=== PATIENT | male | born 1960 | race Caucasian/White ===

== ENCOUNTER 2016-10-13 10:32 | Inpatient (IN) | payer OTHER ==
[2016-10-13 11:07] VITALS: BMI 25.3
--- NOTE | 2016-10-13 15:39 | HP ---
COWS - Scale Resting Pulse: 1= [place] 81-100 Sweatin= Chills/Flushing Restless Observation: 3= Extraneous Movement Pupil Size: 2= Moderately Dilated Bone or Joint Aches: 4=Acute Joint/Muscle Pain Runny Nose/ Eye Tearin= Nasal Congestion GI Upset > 30mins: 1= Stomach Cramp (NAUSEA) Tremor Observation: 1= Tremor [place], Not Seen Yawning Observation: 1= 1-2x During Session Anxiety or Irritability: 2=Irritable/Anxious Goose Flesh Skin: 0=Smooth Skin COWS Score: 17 Admission ROS S - HPI Chief Complaint: DETOX [place] FOR HEROIN DEPENDENCE Allergies/Adverse Reactions: Allergies Allergy/AdvReac Type Severity Reaction Status Date / Time penicillin G Allergy Unknown Verified 10/13/16 14:34 History of Present Illness: 56 Y/O MALE WITH A HX OF HEROIN AND CRACK DEPENDENCE SEEKING DETOX [place]. FIRST TIME IN DETOX. Exam Limitations: No Limitations - Ebola screening Have you traveled outside of the country in the last 21 days: No Have you had contact with anyone from an Ebola affected area: No Have you been sick,other than usual withdrawal symptoms: No Do you have a fever: No - Review of Systems Constitutional: Chills, Night Sweats EENT: reports: Blurred Vision (WEARS GLASSES), Tearing, Nose Congestion, Dental Problems (MISSING TEETH/EXTRACTED TEETH.) Respiratory: reports: No Symptoms reported Cardiac: reports: Lightheadedness GI: reports: Constipated, Diarrhea, Nausea, Poor Fluid Intake, Vomiting : reports: Dysuria Musculoskeletal: reports: Back Pain, Joint Pain, Muscle Pain, Other (BOTH SHOULDERS ARE PROSTHETICS.) Integumentary: reports: No Symptoms Reported Neuro: reports: Headache, Unsteady Gait (SOMETIMES) Endocrine: reports: No Symptoms Reported Hematology: reports: Anemia (THALASSEMIA TRAIT HX PER PT.) Psychiatric: reports: Orientated x3, Anxious Other Systems: Reviewed and Negative Patient History - Patient Medical History Hx Anemia: Yes (THALASSEMIA HX PER PT) Hx Asthma: No Hx Chronic Obstructive Pulmonary Disease (COPD): No Hx Cardiac Disorders: No Hx Hypertension: Yes (ON MEDS;NOT TAKEN X 2 WEEKS;182/109) Hx Hypercholesterolemia: Yes (LIPITOR) HX Cerebrovascular Accident: No Hx Seizures: No Hx Diabetes: No Hx Gastrointestinal Disorders: No Hx Genitourinary Disorders: Yes (UTI HX) Hx Sexually Transmitted Disorders: Yes (HX GONORRHEA IN 1979) Hx Renal Disease (ESRD): Yes ("SLIGHT RENAL INSUFFICIENCY") Hx Thyroid Disease: No Hx Human Immunodeficiency Virus (HIV): No (NEGATIVE HX) Hx Hepatitis C: No Hx Depression: Yes (ON MED) Hx Suicide Attempt: No (DENIES) Hx Bipolar Disorder: Yes (ON MED) Hx Schizophrenia: No - Patient Surgical History Past Surgical History: Yes Hx Neurologic Surgery: No Hx Cataract Extraction: No Hx Cardiac Surgery: No Hx Lung Surgery: No Hx Breast Surgery: No Hx Breast Biopsy: No Hx Abdominal Surgery: No Hx Appendectomy: No Hx Cholecystectomy: No Hx Genitourinary Surgery: No Hx Orthopedic Surgery: Yes (multiple bilateral shoulder sx) Anesthesia Reaction: No - PPD History Previous Implant?: Yes Documented Results: Negative w/o proof Implanted On Prior R Admission?: No PPD to be Administered?: Yes - Reproductive History Patient is a Female of Child Bearing Age (11 -55 yrs old): No (MALE) - Smoking Cessation Smoking history: Current every day smoker Have you smoked in the past 12 months: Yes Aproximately how many cigarettes per day: 20 Hx Chewing Tobacco Use: No Initiated information on smoking cessation: Yes 'Breaking Loose' booklet given: 10/13/16 - Substance & Tx. History Hx Alcohol Use: Yes (SPORADICALLY) Hx Substance Use: Yes (HEROIN/CRACK) Substance Use Type: Alcohol, Cocaine, Heroin Hx Substance Use Treatment: No (FIRST TIME IN [place]) - Substances Abused Heroin Route: Inhalation Frequency: Daily Amount used: 5 bags Age of first use: 55 Date of Last Use: 10/13/16 Crack Route: Smoking Frequency: Daily Amount used: $200-300 Age of first use: 55 Date of Last Use: 10/13/16 Family Disease History - Family Disease History Family Disease History: Diabetes: Grandparent (GF-), Other: Father ( HEROIN ADDICTION-) Admission Physical Exam BHS - Vital Signs Vital Signs: Vital Signs - 24 hr 10/13/16 11:04 Temperature 96.2 F L Pulse Rate 93 H Respiratory 20 Rate Blood Pressure 182/109 - Physical General Appearance: Yes: Moderate Distress, Irritable, Anxious HEENTM: Yes: EOMI, Normocephalic, ELISA, Pharynx Normal, Nasal Congestion, Rhinorrhea Respiratory: Yes: Chest Non-Tender, Lungs Clear, Normal Breath Sounds, No Respiratory Distress Neck: Yes: Supple, Trachea in good position Breast: Yes: Breast Exam Deferred Cardiology: Yes: Regular Rhythm, Regular Rate, S1, S2 Abdominal: Yes: Normal Bowel Sounds, Non Tender, Flat, Soft Genitourinary: Yes: Other (N/C) Musculoskeletal: Yes: full range of Motion, Gait Steady Extremities: Yes: Normal Range of Motion, Non-Tender Neurological: Yes: supervisor modern languages II-XII NML intact, Fully Oriented, Alert Integumentary: Yes: Dry, Warm Lymphatic: Yes: Within Normal Limits - Diagnostic (1) Opioid dependence with withdrawal Current Visit: Yes Status: Acute (2) Cocaine dependence, uncomplicated Current Visit: Yes Status: Acute (3) Hypertension Current Visit: Yes Status: Chronic Qualifiers: Hypertension type: essential hypertension Qualified Code(s): I10 - Essential (primary) hypertension (4) Hypercholesterolemia Current Visit: Yes Status: Chronic (5) History of depression Current Visit: Yes Status: Chronic Cleared for Admission [facility] - Detox or Rehab [facility] Level of Care: Medically Managed Detox Regimen/Protocol: Methadone [facility] Breath Alcohol Content Breath Alcohol Content: 0 Urine Drug Screen - Results Drug Screen Negative: No Urine Drug Screen Results: EVANGELINA-Cocaine, OPI-Opiates
[2016-10-13] MEDS ORDERED: MAG HYDROX/AL HYDROX/SIMETH 30 ML UNIT-DOSE CUP PO PRN (16:10)
[2016-10-13] MEDS ORDERED: MAGNESIUM HYDROX 2400MG/30ML ORAL SUSPENSION 30 ML CUP PO PRN (16:10)
[2016-10-13] MEDS ORDERED: NICOTINE POLACRILEX 4 MG GUM BC PRN (16:10)
[2016-10-13] MEDS ORDERED: LOPERAMIDE HCL 2 MG CAPSULE PO PRN (16:10)
[2016-10-13] MEDS ORDERED: MENTHOL/PHENOL 1 EACH UD MM PRN (16:10)
[2016-10-13] MEDS ORDERED: P-EPHED 60MG/TRIPROLIDI 2.5MG TABLET PO PRN (16:10)
[2016-10-13] MEDS ORDERED: IBUPROFEN 400 MG TABLET (FP) PO PRN (16:10)
[2016-10-13] MEDS ORDERED: ACETAMINOPHEN 325 MG TABLET (FP) PO PRN (16:10)
[2016-10-13] MEDS ORDERED: MAGNESIUM CITRATE 300 ML BOTTLE PO PRN (16:10)
[2016-10-13] MEDS ORDERED: guaiFENesin/D-METHORPHAN HB 10 ML UNIT-DOSE CUPS PO PRN (16:10)
[2016-10-13] MEDS ORDERED: PATIENT'S OWN MEDICATION (NON-FORMULARY) (Losartan/Hydrochlorothiazide [Hyzaar 100-12.5 Ta PO SCH (16:30)
[2016-10-13] MEDS ORDERED: METHADONE HCL 10 MG TABLET (FOR DETOX USE ONLY) PO ONE ×2 (16:45→23:00)
[2016-10-13] MEDS: diazePAM 5 MG TABLET PO PRN ×2 (17:11→22:17)
[2016-10-13] MEDS: NICOTINE 21 MG/24 HOURS TOPICAL PATCH TD SCH (17:12)
[2016-10-13] MEDS: ALLOPURINOL 100 MG TABLET (FP) PO SCH (17:16)
[2016-10-13] MEDS: THIAMINE HCL 100 MG TABLET (FP) PO SCH (22:16)
[2016-10-13] MEDS: diphenhydrAMINE HCL 50 MG CAPSULE PO PRN (22:16)
[2016-10-13] MEDS: ATORVASTATIN CA 10 MG TABLET (FP) PO SCH (22:17)
[2016-10-13 23:27] LABS: URINE APPEARANCE CLEAR; URINE BILIRUBIN NEGATIVE (NEGATIVE); URINE BLOOD NEGATIVE (NEGATIVE); URINE COLOR LTYELLOW; URINE GLUCOSE (UA) NEGATIVE (NEGATIVE); URINE KETONE NEGATIVE (NEGATIVE); URINE LEUK ESTERASE NEGATIVE (NEGATIVE); URINE NITRITE NEGATIVE (NEGATIVE); URINE PROTEIN NEGATIVE (NEGATIVE); URINE UROBILINOGEN NEGATIVE E.U./dl (0.2-1.0)
[2016-10-14] MEDS: diazePAM 5 MG TABLET PO PRN (06:08)
[2016-10-14] MEDS ORDERED: METHADONE HCL 10 MG TABLET (FOR DETOX USE ONLY) PO ONE (10:00)
[2016-10-14 10:26] LABS: MCH 20.4 pg (25.7-33.7); MCHC 31.3 g/dl (32.0-35.9); MEAN CELL VOLUME 65.2 fl (80-96); MEAN PLT VOLUME 9.4 fl (7.5-11.1); PLATELET COUNT 269 K/MM3 (134-434); RDW 17.7 % (11.9-15.9); WHITE BLOOD COUNT 6.2 K/mm3 (4.0-10.0)
[2016-10-14] MEDS: PRENATAL VITAMINS W/ FOLIC ACID TABLET (FP) PO SCH (10:40)
[2016-10-14] MEDS: HYDROCHLOROTHIAZIDE 12.5 MG CAPSULE (FP) PO SCH (10:41)
[2016-10-14] MEDS: LOSARTAN POTASSIUM 50 MG TABLET (FP) PO SCH (10:41)
[2016-10-14] MEDS: NICOTINE 21 MG/24 HOURS TOPICAL PATCH TD SCH (10:41)
[2016-10-14] MEDS: ALLOPURINOL 100 MG TABLET (FP) PO SCH (10:41)
[2016-10-14 10:59] LABS: ALBUMIN 3.9 g/dl (3.4-5.0); BILIRUBIN,TOTAL 0.5 mg/dL (0.2-1.0); CALCIUM 9.5 mg/dL (8.5-10.1); CREATININE 2.3 mg/dL (0.7-1.3); TOT PROT 7.1 g/dl (6.4-8.2)
[2016-10-14 11:11] LABS: PLATELET ESTIMATE ADEQUATE (NORMAL); POLYCHROMASIA 1+
[2016-10-14 11:12] LABS: ANISOCYTOSIS 1+; HYPOCHROMIA 2+; MICROCYTOSIS 1+; OVALOCYTES 1+; POIKILOCYTOSIS 1+; TARGET CELLS 2+
[2016-10-14] MEDS ORDERED: INFLUENZA VACCINE 45 MCG/0.5 ML (MDV 16-17) IM ONE (12:00)
--- NOTE | 2016-10-14 12:30 | EKG ---
Test Reason : Blood Pressure : / mmHG Vent. Rate : 063 BPM Atrial Rate : 063 BPM P-R Int : 166 ms QRS Dur : 090 ms QT Int : 458 ms P-R-T Axes : 061 -14 -25 degrees QTc Int : 468 ms POOR DATA QUALITY, INTERPRETATION MAY BE ADVERSELY AFFECTED NORMAL SINUS RHYTHM Confirmed by JOSSELYN EDUARDO, RAMONA ([id number]) on 10/14/2016 12:29:38 PM Referred By: Confirmed By:RAMONA ARCOS MD
[2016-10-14 13:46] LABS: HIV 1 & 2 AB NEGATIVE; HIV 1 AGp24 NEGATIVE
--- NOTE | 2016-10-14 15:25 | PN ---
S COWS - Scale Resting Pulse: 1= [place] 81-100 Sweatin= No chills or Flushing Restless Observation: 1= Difficult to Sit Still Pupil Size: 1= Pupils >than Normal Bone or Joint Aches: 2= Severe Diffuse Aches Runny Nose/ Eye Tearin= Nasal Congestion GI Upset > 30mins: 2= Nausea/Diarrhea Tremor Observation of Outstretched Hands: 2= Slight Tremor Visible Yawning Observation: 1= 1-2x During Session Anxiety or Irritability: 2=Irritable/Anxious Goose Flesh Skin: 0=Smooth Skin COWS Score: 13 [facility] Progress Note (SOAP) Subjective: Nausea, Stomach Cramping, Body Aches, Fatigue, Tremors. Objective: PT. A & O X 3. 10/14/16 15:22 Vital Signs Temperature 96.6 F L 10/14/16 10:56 Pulse Rate 75 10/14/16 10:56 Respiratory Rate 18 10/14/16 10:56 Blood Pressure 129/80 10/14/16 10:56 O2 Sat by Pulse Oximetry (%) Laboratory Last Values WBC 6.2 K/mm3 (4.0-10.0) 10/14/16 06:00 RBC 5.77 M/mm3 (4.00-5.60) H 10/14/16 06:00 Hgb 11.8 GM/dL (11.7-16.9) 10/14/16 06:00 Hct 37.6 % (35.4-49) 10/14/16 06:00 MCV 65.2 fl (80-96) L 10/14/16 06:00 MCHC 31.3 g/dl (32.0-35.9) L 10/14/16 06:00 RDW 17.7 % (11.9-15.9) H 10/14/16 06:00 Plt Count 269 K/MM3 (134-434) 10/14/16 06:00 MPV 9.4 fl (7.5-11.1) 10/14/16 06:00 Platelet Estimate Adequate (NORMAL) 10/14/16 06:00 Platelet Comment No clumping noted 10/14/16 06:00 Polychromasia 1+ 10/14/16 06:00 Hypochromic-Microcytic 2+ 10/14/16 06:00 Poikilocytosis 1+ 10/14/16 06:00 Anisocytosis 1+ 10/14/16 06:00 Microcytosis 1+ 10/14/16 06:00 Target Cells 2+ 10/14/16 06:00 Ovalocytes 1+ 10/14/16 06:00 Sodium 142 mmol/L (136-145) 10/14/16 06:00 Potassium 4.2 mmol/L (3.5-5.1) 10/14/16 06:00 Chloride 103 mmol/L (98-107) 10/14/16 06:00 Carbon Dioxide 30 mmol/L (21-32) 10/14/16 06:00 Anion Gap 9 (8-16) 10/14/16 06:00 BUN 21 mg/dL (7-18) H 10/14/16 06:00 Creatinine 2.3 mg/dL (0.7-1.3) H 10/14/16 06:00 Creat Clearance w eGFR 29.67 (>60) 10/14/16 06:00 Random Glucose 85 mg/dL (74-106) 10/14/16 06:00 Calcium 9.5 mg/dL (8.5-10.1) 10/14/16 06:00 Total Bilirubin 0.5 mg/dL (0.2-1.0) 10/14/16 06:00 AST 20 U/L (15-37) 10/14/16 06:00 ALT 21 U/L (12-78) 10/14/16 06:00 Alkaline Phosphatase 75 U/L (45-117) 10/14/16 06:00 Total Protein 7.1 g/dl (6.4-8.2) 10/14/16 06:00 Albumin 3.9 g/dl (3.4-5.0) 10/14/16 06:00 Urine Color Ltyellow 10/13/16 19:34 Urine Appearance Clear 10/13/16 19:34 Urine pH 7.0 (5.0-8.0) 10/13/16 19:34 Ur Specific [place] 1.009 (1.001-1.035) 10/13/16 19:34 Urine Protein Negative (NEGATIVE) 10/13/16 19:34 Urine Glucose (UA) Negative (NEGATIVE) 10/13/16 19:34 Urine Ketones Negative (NEGATIVE) 10/13/16 19:34 Urine Blood Negative (NEGATIVE) 10/13/16 19:34 Urine Nitrite Negative (NEGATIVE) 10/13/16 19:34 Urine Bilirubin Negative (NEGATIVE) 10/13/16 19:34 Urine Urobilinogen Negative E.U./dl (0.2-1.0) 10/13/16 19:34 Ur Leukocyte Esterase Negative (NEGATIVE) 10/13/16 19:34 HIV 1&2 Antibody Screen Negative 10/14/16 08:00 HIV P24 Antigen Negative 10/14/16 08:00 LABS NOTED. Assessment: 10/14/16 15:24 WITHDRAWAL SYMPTOMS. Plan: CONTINUE DETOX. D/C MAGNESIUM-CONTAINING MEDS. ADVISED PATIENT TO FOLLOW-UP WITH [facility] / REHAB MEDICAL PROVIDER AFTER DISCHARGER FROM DETOX FOR GENERAL MEDICAL ASSESSMENT AND FOR ABNORMAL ADMISSION LAB VALUES.
--- NOTE | 2016-10-14 16:22 | CONSULT ---
[facility] Psychiatric Consult - Data Date of interview: 10/14/16 Admission source: [facility] Identifying data: First admission to [facility] for this 56 y/o male seeking detoxification for heroin and cocaine dependence.Patient is domiciled ( living with ),a father of two and employed. Substance Abuse History: - Smoking Cessation. Smoking history: Current every day smoker. Have you smoked in the past 12 months: Yes. Aproximately how many cigarettes per day: 20. Hx Chewing Tobacco Use: No. Initiated information on smoking cessation: Yes. 'Breaking Loose' booklet given: 10/13/16. - Substance & Tx. History. Hx Alcohol Use: Yes (SPORADICALLY). Hx Substance Use: Yes ( HEROIN/CRACK). Substance Use Type: Alcohol, Cocaine, Heroin. Hx Substance Use Treatment: No (FIRST TIME IN [place]). - Substances Abused. Heroin. Route: Inhalation. Frequency: Daily. Amount used: 5 bags. Age of first use: 55. Date of Last Use: 10/13/16. Crack. Route: Smoking. Frequency: Daily. Amount used: $200-300. Age of first use: 55. Date of Last Use: 10/13/16. Confirmed by patient. Medical History: Hypertension,gout,dyslipidemia and a history of orthosurgery ( both shoulders). Psychiatric History: Patient admits to a remote history of a psychiatric admission to [facility] [place] (years ago).Diagnosed with Bipolar Disorder and prescribed lithium 300 mg/day + lamotrigine 100 mg po bid + depakote 100 mg po bid.Not taken for more than two weeks,accoerding to patient.Mr Croft sees a private psychiatrist in [facility].No reported history of suicide attempts. Physical/Sexual Abuse/Trauma History: Patient denies. Additional Comment: Urine Drug Screen Results: EVANGELINA-Cocaine, OPI-Opiates. Noted. Mental Status Exam - Mental Status Exam Alert and Oriented to: Time, Place, Person Cognitive Function: Good Patient Appearance: Well Groomed (short stature) Mood: Hopeful, Euthymic Affect: Appropriate, Normal Range Patient Behavior: Fatigued, Appropriate, Cooperative Speech Pattern: Clear, Appropriate Voice Loudness: Normal Thought Process: Goal Oriented Thought Disorder: Not Present Hallucinations: Denies Suicidal Ideation: Denies Homicidal Ideation: Denies Insight/Judgement: Poor Sleep: Fair Appetite: Good Muscle strength/Tone: Normal Gait/Station: Normal Psychiatric Findings - Problem List ([place] 1, 2,3) (1) Cocaine dependence, uncomplicated Current Visit: Yes Status: Acute (2) Opioid dependence with withdrawal Current Visit: Yes Status: Acute (3) Nicotine dependence Current Visit: Yes Status: Acute (4) Substance induced mood disorder Current Visit: Yes Status: Acute (5) Bipolar disorder Current Visit: Yes Status: Acute Comment: History. (6) Hypercholesterolemia Current Visit: Yes Status: Chronic (7) Hypertension Current Visit: Yes Status: Chronic Qualifiers: Hypertension type: essential hypertension Qualified Code(s): I10 - Essential (primary) hypertension - Initial Treatment Plan Initial Treatment Plan: Psychoeducation.Detoxification in progress.Labs reviewed.Noted compromised renal function (BUN = 21 - creatinine = 2.3 - GFR = 29.6).[place] (abnormal renal function) and lamictal (chronic non-compliance) are held.Medication : depakote 500 mg po bid.Side effects/benefits discussed with patient.Will titrate as clinically indicated.Patient is informed of this stategy.Agrees.Medications verified by checking pharmacy claims (filled scripts from provider Fredi Fierro on 09/01/16 @ [facility] # [id number]).Patient confirms that he has ample supply of medications at home.No need for scripts at discharge.Observation.
[2016-10-14] MEDS: DIVALPROEX SODIUM 500 MG TABLET E.C. PO SCH (22:26)
[2016-10-14] MEDS: ATORVASTATIN CA 10 MG TABLET (FP) PO SCH (22:26)
[2016-10-14] MEDS: THIAMINE HCL 100 MG TABLET (FP) PO SCH (22:26)
[2016-10-14] MEDS: diphenhydrAMINE HCL 50 MG CAPSULE PO PRN (22:27)
[2016-10-15] MEDS: diazePAM 5 MG TABLET PO PRN (06:16)
[2016-10-15] MEDS ORDERED: METHADONE HCL 5 MG TABLET (FOR DETOX USE ONLY) PO ONE (10:00)
[2016-10-15] MEDS: NICOTINE 21 MG/24 HOURS TOPICAL PATCH TD SCH (10:14)
[2016-10-15] MEDS: LOSARTAN POTASSIUM 50 MG TABLET (FP) PO SCH (10:14)
[2016-10-15] MEDS: DIVALPROEX SODIUM 500 MG TABLET E.C. PO SCH ×2 (10:14→22:07)
[2016-10-15] MEDS: HYDROCHLOROTHIAZIDE 12.5 MG CAPSULE (FP) PO SCH (10:14)
[2016-10-15] MEDS: ALLOPURINOL 100 MG TABLET (FP) PO SCH (10:14)
[2016-10-15] MEDS: PRENATAL VITAMINS W/ FOLIC ACID TABLET (FP) PO SCH (10:15)
--- NOTE | 2016-10-15 16:11 | PN ---
S COWS - Scale Resting Pulse: 1= [place] 81-100 Sweatin=Flushed/Facial Moisture Restless Observation: 3= Extraneous Movement Pupil Size: 0= Normal to Room Light Bone or Joint Aches: 2= Severe Diffuse Aches Runny Nose/ Eye Tearin= Runny Nose/Eyes GI Upset > 30mins: 0= None Tremor Observation of Outstretched Hands: 2= Slight Tremor Visible Yawning Observation: 0= None Anxiety or Irritability: 2=Irritable/Anxious Goose Flesh Skin: 0=Smooth Skin COWS Score: 14 S Progress Note (SOAP) Subjective: Nausea, tremor, sweating, interrupted sleep Objective: 10/15/16 16:08 Last Vital Signs Temp Pulse Resp BP Pulse Ox 98.3 F 91 H 19 132/89 10/15/16 14:00 10/15/16 14:00 10/15/16 14:00 10/15/16 14:00 Laboratory Tests 10/13/16 10/14/16 10/14/16 19:34 06:00 06:00 WBC 6.2 RBC 5.77 H Hgb 11.8 Hct 37.6 MCV 65.2 L MCHC 31.3 L RDW 17.7 H Plt Count 269 MPV 9.4 Platelet Estimate Adequate Platelet Comment No clumping noted Polychromasia 1+ Hypochromic-Microcytic 2+ Poikilocytosis 1+ Anisocytosis 1+ Microcytosis 1+ Target Cells 2+ Ovalocytes 1+ Sodium 142 Potassium 4.2 Chloride 103 Carbon Dioxide 30 Anion Gap 9 BUN 21 H Creatinine 2.3 H Creat Clearance w eGFR 29.67 Random Glucose 85 Calcium 9.5 Total Bilirubin 0.5 AST 20 ALT 21 Alkaline Phosphatase 75 Total Protein 7.1 Albumin 3.9 Urine Color Ltyellow Urine Appearance Clear Urine pH 7.0 Ur Specific [place] 1.009 Urine Protein Negative Urine Glucose (UA) Negative Urine Ketones Negative Urine Blood Negative Urine Nitrite Negative Urine Bilirubin Negative Urine Urobilinogen Negative Ur Leukocyte Esterase Negative Valproic Acid RPR Titer HIV 1&2 Antibody Screen HIV P24 Antigen 10/14/16 10/14/16 10/15/16 06:00 08:00 07:45 WBC RBC Hgb Hct MCV MCHC RDW Plt Count MPV Platelet Estimate Platelet Comment Polychromasia Hypochromic-Microcytic Poikilocytosis Anisocytosis Microcytosis Target Cells Ovalocytes Sodium Potassium Chloride Carbon Dioxide Anion Gap BUN Creatinine Creat Clearance w eGFR Random Glucose Calcium Total Bilirubin AST ALT Alkaline Phosphatase Total Protein Albumin Urine Color Urine Appearance Urine pH Ur Specific [place] Urine Protein Urine Glucose (UA) Urine Ketones Urine Blood Urine Nitrite Urine Bilirubin Urine Urobilinogen Ur Leukocyte Esterase Valproic Acid 41.1 L RPR Titer Nonreactive HIV 1&2 Antibody Screen Negative HIV P24 Antigen Negative Labs noted: BUN 21, serum creatinine 2.3 Assessment: 10/15/16 16:09 Withdrawal symptoms Noted with FABIAN Plan: Continue detox FABIAN: encourage to drink lots of water (provide water pitcher), repeat BMP
[2016-10-15] MEDS: THIAMINE HCL 100 MG TABLET (FP) PO SCH (22:07)
[2016-10-15] MEDS: ATORVASTATIN CA 10 MG TABLET (FP) PO SCH (22:07)
[2016-10-15] MEDS: diphenhydrAMINE HCL 50 MG CAPSULE PO PRN (22:07)
[2016-10-16] MEDS: diazePAM 5 MG TABLET PO PRN ×2 (06:14→10:23)
[2016-10-16 09:51] LABS: CALCIUM 9.3 mg/dL (8.5-10.1)
[2016-10-16] MEDS ORDERED: METHADONE HCL 5 MG TABLET (FOR DETOX USE ONLY) PO ONE (10:00)
[2016-10-16] MEDS: DIVALPROEX SODIUM 500 MG TABLET E.C. PO SCH (10:22)
[2016-10-16] MEDS: PRENATAL VITAMINS W/ FOLIC ACID TABLET (FP) PO SCH (10:22)
[2016-10-16] MEDS: ALLOPURINOL 100 MG TABLET (FP) PO SCH (10:22)
[2016-10-16] MEDS: HYDROCHLOROTHIAZIDE 12.5 MG CAPSULE (FP) PO SCH (10:22)
[2016-10-16] MEDS: LOSARTAN POTASSIUM 50 MG TABLET (FP) PO SCH (10:23)
[2016-10-16] MEDS: NICOTINE 21 MG/24 HOURS TOPICAL PATCH TD SCH (10:23)
[2016-10-16 13:02] VITALS: BP 128/91; PULSE 76; TEMP 98
--- NOTE | 2016-10-16 13:24 | PN ---
S Progress Note (SOAP) Subjective: Sweating,interrupted sleep,restless. Objective: 10/16/16 13:23 Vital Signs - 8 hr 10/16/16 10/16/16 10/16/16 06:32 09:52 13:01 Temperature 97.0 F L 95.4 F L 98 F Pulse Rate 93 H 78 76 Respiratory 18 20 20 Rate Blood Pressure 127/83 135/85 128/91 Laboratory Last Values WBC 6.2 K/mm3 (4.0-10.0) 10/14/16 06:00 RBC 5.77 M/mm3 (4.00-5.60) H 10/14/16 06:00 Hgb 11.8 GM/dL (11.7-16.9) 10/14/16 06:00 Hct 37.6 % (35.4-49) 10/14/16 06:00 MCV 65.2 fl (80-96) L 10/14/16 06:00 MCHC 31.3 g/dl (32.0-35.9) L 10/14/16 06:00 RDW 17.7 % (11.9-15.9) H 10/14/16 06:00 Plt Count 269 K/MM3 (134-434) 10/14/16 06:00 MPV 9.4 fl (7.5-11.1) 10/14/16 06:00 Platelet Estimate Adequate (NORMAL) 10/14/16 06:00 Platelet Comment No clumping noted 10/14/16 06:00 Polychromasia 1+ 10/14/16 06:00 Hypochromic-Microcytic 2+ 10/14/16 06:00 Poikilocytosis 1+ 10/14/16 06:00 Anisocytosis 1+ 10/14/16 06:00 Microcytosis 1+ 10/14/16 06:00 Target Cells 2+ 10/14/16 06:00 Ovalocytes 1+ 10/14/16 06:00 Sodium 144 mmol/L (136-145) 10/16/16 07:00 Potassium 3.9 mmol/L (3.5-5.1) 10/16/16 07:00 Chloride 107 mmol/L (98-107) 10/16/16 07:00 Carbon Dioxide 29 mmol/L (21-32) 10/16/16 07:00 Anion Gap 8 (8-16) 10/16/16 07:00 BUN 21 mg/dL (7-18) H 10/16/16 07:00 Creatinine 2.0 mg/dL (0.7-1.3) H 10/16/16 07:00 Creat Clearance w eGFR 29.67 (>60) 10/14/16 06:00 Random Glucose 84 mg/dL (74-106) 10/16/16 07:00 Calcium 9.3 mg/dL (8.5-10.1) 10/16/16 07:00 Total Bilirubin 0.5 mg/dL (0.2-1.0) 10/14/16 06:00 AST 20 U/L (15-37) 10/14/16 06:00 ALT 21 U/L (12-78) 10/14/16 06:00 Alkaline Phosphatase 75 U/L (45-117) 10/14/16 06:00 Total Protein 7.1 g/dl (6.4-8.2) 10/14/16 06:00 Albumin 3.9 g/dl (3.4-5.0) 10/14/16 06:00 Urine Color Ltyellow 10/13/16 19:34 Urine Appearance Clear 10/13/16 19:34 Urine pH 7.0 (5.0-8.0) 10/13/16 19:34 Ur Specific [place] 1.009 (1.001-1.035) 10/13/16 19:34 Urine Protein Negative (NEGATIVE) 10/13/16 19:34 Urine Glucose (UA) Negative (NEGATIVE) 10/13/16 19:34 Urine Ketones Negative (NEGATIVE) 10/13/16 19:34 Urine Blood Negative (NEGATIVE) 10/13/16 19:34 Urine Nitrite Negative (NEGATIVE) 10/13/16 19:34 Urine Bilirubin Negative (NEGATIVE) 10/13/16 19:34 Urine Urobilinogen Negative E.U./dl (0.2-1.0) 10/13/16 19:34 Ur Leukocyte Esterase Negative (NEGATIVE) 10/13/16 19:34 Valproic Acid 41.1 ug/ml (50-100) L 10/15/16 07:45 RPR Titer Nonreactive (NONREACTIVE) 10/14/16 06:00 HIV 1&2 Antibody Screen Negative 10/14/16 08:00 HIV P24 Antigen Negative 10/14/16 08:00 labs noted Assessment: 10/16/16 13:23 Withdrawal sx. Plan: Continue detox
--- NOTE | 2016-10-17 09:02 | DS ---
[facility] Detox Discharge Summary Admission Date: 10/13/16 Discharge Date: 10/16/16 - History Present History: Cocaine Dependence, Opioid Dependence Pertinent Past History: HTN Hypercholesterolemia - Physical Exam Results Vital Signs: Vital Signs Temperature 98 F 10/16/16 13:01 Pulse Rate 76 10/16/16 13:01 Respiratory Rate 20 10/16/16 13:01 Blood Pressure 128/91 10/16/16 13:01 O2 Sat by Pulse Oximetry (%) Pertinent Admission Physical Exam Findings: Withdrawal sx. Laboratory Last Values WBC 6.2 K/mm3 (4.0-10.0) 10/14/16 06:00 RBC 5.77 M/mm3 (4.00-5.60) H 10/14/16 06:00 Hgb 11.8 GM/dL (11.7-16.9) 10/14/16 06:00 Hct 37.6 % (35.4-49) 10/14/16 06:00 MCV 65.2 fl (80-96) L 10/14/16 06:00 MCHC 31.3 g/dl (32.0-35.9) L 10/14/16 06:00 RDW 17.7 % (11.9-15.9) H 10/14/16 06:00 Plt Count 269 K/MM3 (134-434) 10/14/16 06:00 MPV 9.4 fl (7.5-11.1) 10/14/16 06:00 Platelet Estimate Adequate (NORMAL) 10/14/16 06:00 Platelet Comment No clumping noted 10/14/16 06:00 Polychromasia 1+ 10/14/16 06:00 Hypochromic-Microcytic 2+ 10/14/16 06:00 Poikilocytosis 1+ 10/14/16 06:00 Anisocytosis 1+ 10/14/16 06:00 Microcytosis 1+ 10/14/16 06:00 Target Cells 2+ 10/14/16 06:00 Ovalocytes 1+ 10/14/16 06:00 Sodium 144 mmol/L (136-145) 10/16/16 07:00 Potassium 3.9 mmol/L (3.5-5.1) 10/16/16 07:00 Chloride 107 mmol/L (98-107) 10/16/16 07:00 Carbon Dioxide 29 mmol/L (21-32) 10/16/16 07:00 Anion Gap 8 (8-16) 10/16/16 07:00 BUN 21 mg/dL (7-18) H 10/16/16 07:00 Creatinine 2.0 mg/dL (0.7-1.3) H 10/16/16 07:00 Creat Clearance w eGFR 29.67 (>60) 10/14/16 06:00 Random Glucose 84 mg/dL (74-106) 10/16/16 07:00 Calcium 9.3 mg/dL (8.5-10.1) 10/16/16 07:00 Total Bilirubin 0.5 mg/dL (0.2-1.0) 10/14/16 06:00 AST 20 U/L (15-37) 10/14/16 06:00 ALT 21 U/L (12-78) 10/14/16 06:00 Alkaline Phosphatase 75 U/L (45-117) 10/14/16 06:00 Total Protein 7.1 g/dl (6.4-8.2) 10/14/16 06:00 Albumin 3.9 g/dl (3.4-5.0) 10/14/16 06:00 Urine Color Ltyellow 10/13/16 19:34 Urine Appearance Clear 10/13/16 19:34 Urine pH 7.0 (5.0-8.0) 10/13/16 19:34 Ur Specific [place] 1.009 (1.001-1.035) 10/13/16 19:34 Urine Protein Negative (NEGATIVE) 10/13/16 19:34 Urine Glucose (UA) Negative (NEGATIVE) 10/13/16 19:34 Urine Ketones Negative (NEGATIVE) 10/13/16 19:34 Urine Blood Negative (NEGATIVE) 10/13/16 19:34 Urine Nitrite Negative (NEGATIVE) 10/13/16 19:34 Urine Bilirubin Negative (NEGATIVE) 10/13/16 19:34 Urine Urobilinogen Negative E.U./dl (0.2-1.0) 10/13/16 19:34 Ur Leukocyte Esterase Negative (NEGATIVE) 10/13/16 19:34 Valproic Acid 41.1 ug/ml (50-100) L 10/15/16 07:45 [employer] < 0.1 MEQ/L (0.6-1.2) L 10/15/16 07:45 RPR Titer Nonreactive (NONREACTIVE) 10/14/16 06:00 HIV 1&2 Antibody Screen Negative 10/14/16 08:00 HIV P24 Antigen Negative 10/14/16 08:00 labs noted - Treatment Patient has Accepted a Rehab Referral to: [facility] meeting & OTP - Medication Discharge Medications: Ambulatory Orders Allopurinol [Zyloprim -] 100 mg PO DAILY 10/13/16 Atorvastatin Ca [Lipitor] 10 mg PO HS 10/13/16 Divalproex [Depakote -] 2,000 mg PO DAILY 10/13/16 Lamotrigine [Lamictal -] 100 mg PO DAILY 10/13/16 [employer] Carbonate [Eskalith -] 300 mg PO DAILY 10/13/16 Losartan/Hydrochlorothiazide [Hyzaar 100-12.5 Tablet] 1 each PO DAILY 10/13/16 - Diagnosis (1) Cocaine dependence, uncomplicated Status: Acute (2) Nicotine dependence Status: Acute (3) Opioid dependence with withdrawal Status: Acute (4) Substance induced mood disorder Status: Acute (5) Hypercholesterolemia Status: Chronic (6) Hypertension Status: Chronic Qualifiers: Hypertension type: essential hypertension Qualified Code(s): I10 - Essential (primary) hypertension (7) Bipolar disorder Status: Acute - AMA Did Patient Leave Against Medical Advice: Yes
[2016-10-17] MEDS ORDERED: METHADONE HCL 10 MG TABLET (FOR DETOX USE ONLY) PO ONE (10:00)
[2016-10-18] MEDS ORDERED: METHADONE HCL 5 MG TABLET (FOR DETOX USE ONLY) PO ONE (06:00)
== END 2016-10-16 15:28 | disposition left against medical advice (07) | DRG 894 ==
LOC: YASAS 10:32 → Y3N 15:55
PROVIDERS: ADMIT Internal Medicine; ATTEND Internal Medicine
PROC: HZ2ZZZZ Detoxification Services for Substance Abuse Treatment (ICD-10-PCS; principal; 2016-10-13)
DX: F11.23 Opioid dependence with withdrawal (principal); F14.20 Cocaine dependence, uncomplicated; F17.210 Nicotine dependence, cigarettes, uncomplicated; I10 Essential (primary) hypertension; M10.9 Gout, unspecified; E78.5 Hyperlipidemia, unspecified; Z86.2 Personal history of diseases of the blood and blood-forming organs and certain disorders involving the immune mechanism
CPT/HCPCS: 36415; 80048; 80053; 80164; 80178; 81003; 85027; 86593; 87389; 93005; 93010; Q2037